=== PATIENT | female | born 2000 | race Caucasian/White ===

== ENCOUNTER 2022-06-07 17:43 | Emergency (ER) | payer OTHER, SELFPAY ==
[2022-06-07 17:50] VITALS: BP 122/63; PULSE 109; RESP 15; TEMP 36.7; O2SAT 99; BMI 20.7
[2022-06-07 18:38] LABS: Influenza A - CEPHEID Flu A NEGATIVE (NEGATIVE); Influenza B - CEPHEID Flu B NEGATIVE (NEGATIVE); Respiratory Syncytial Virus POSITIVE (Negative)
[2022-06-07 18:50] LABS: COVID-19 CEPHEID 4-PLEX PCR Negative (Negative)
--- NOTE | 2022-06-07 20:31 | ED_ITS ---
HPI - URI/Sore Throat General Chief Complaint: Upper Respiratory Symptoms Stated Complaint: sick since sunday Time Seen by Provider: 06/07/22 18:11 Source: patient Mode of arrival: Ambulatory History of Present Illness HPI Narrative: 21F nonsmoker without chronic medical history presents with her significant other and the chief complaint of various typical upper respiratory symptoms over the past few days. She is had runny nose and nasal congestion, mild headache and some sore throat as well as a dry hacking cough. She states her cough seems to get worse at night. She denies any significant shortness of breath, chest pain. She does have nausea and occasional vomiting but denies abdominal pain or diarrhea. She has no dysuria, frequency or urgency. She states that she has a friend who is 1-year-old child was recently diagnosed with RSV Related Data Previous Rx's Medication Instructions Recorded albuterol sulfate 90 mcg/actuation 2 puff inhalation Q4H PRN 06/07/22 breath activated powder inhaler shortness of breath or wheezing #1 ea benzonatate 200 mg capsule 200 mg PO BID PRN cough #20 caps 06/07/22 ondansetron 4 mg disintegrating 4 mg PO TID-QID PRN nausea and 06/07/22 tablet vomiting #10 tabs Allergies Allergy/AdvReac Type Severity Reaction Status Date / Time No Known Drug Allergies Allergy Verified 06/07/22 17:50 Review of Systems Review of Systems Narrative: GENERAL: See HPI HEENT: See HPI RESPIRATORY: See HPI CARDIOVASCULAR: Denies chest pain, palpitations, orthopnea, edema, GASTROINTESTINAL: See HPI : Denies dysuria, frequency, incontinence, hematuria, urinary retention. MUSCULOSKELETAL: denies weakness, joint pain, or bony pain SKIN: Denies rash, skin lesions, or other NEUROLOGIC: Denies weakness, headache, numbness, change in speech, confusion, seizures, incoordination. PSYCHIATRIC: No concerning psychosocial issues. 12 point review of systems is negative except for those stated above Patient History Social History Smoking Status: Unknown if ever smoked Smoking Status: Unknown if ever smoked alcohol intake frequency: a few times a week Substance Use Type: does not use Exam Narrative Exam Narrative: GENERAL: [21] year old patient appears stated age. Well-developed patient, in mild distress. HEAD: Atraumatic. Normocephalic. EYES: Pupils equal round and reactive. Extraocular motions intact. No scleral icterus. No injection or drainage. ENT: Clear postnasal drip Nose without bleeding, purulent drainage. Throat without erythema, tonsillar hypertrophy or exudate. Airway patent. NECK: Trachea midline. Non tender CARDIOVASCULAR: Regular rate and rhythm without murmurs, gallops, or rubs. RESPIRATORY: Clear to auscultation. Breath sounds equal bilaterally. No wheezes, rales, or rhonchi. No increased work of breathing such as tachypnea, use of accessory muscles or hypoxemia GASTROINTESTINAL: Abdomen soft, non-tender, nondistended. EXTREMITIES: No edema or joint tenderness. BACK: Nontender without deformity or crepitance. No flank tenderness. NEURO: AOx3. SKIN: No rash or erythema of visible areas Initial Vital Signs Initial Vital Signs: Vital Signs Temperature 98.0 F 06/07/22 17:50 Pulse Rate 109 H 06/07/22 17:50 Respiratory Rate 15 06/07/22 17:50 Blood Pressure 122/63 06/07/22 17:50 Pulse Oximetry 99 06/07/22 17:50 Oxygen Delivery Method 06/07/22 17:50 Course Orders Ordered: ED Orders 06/07/22 17:50 Covid-19 + FLU A/B + RSV - PCR Stat Discontinued Medications Ondansetron HCl (Ondansetron 4 Mg Odt Prepack) 1 bottle MISC SEEINSTR ONE Stop: 06/07/22 20:29 Vital Signs Vital signs: Vital Signs - 8 hr 06/07/22 17:50 Temperature 98.0 F Pulse Rate 109 H Respiratory Rate 15 Blood Pressure 122/63 Pulse Oximetry 99 Oxygen Delivery Method Room Air MDM - URI/Sore Throat Lab Data Labs: Lab Results 06/07/22 Range/Units 17:50 SARS-CoV-2 (PCR) Negative (Negative) Influenza A (RT-PCR) Flu a negative (NEGATIVE) Influenza B (RT-PCR) Flu b negative (NEGATIVE) RSV (PCR) Positive A (Negative) MDM Narrative Medical decision making narrative: 21-year-old nonsmoker without chronic medical problems has reassuring history and physical exam with known exposure to RSV. She is had cough but no significant shortness of breath and other various typical upper respiratory symptoms. She is not hypoxemic or requiring supplemental oxygen, she is nauseated but tolerating orals without signs of dehydration. Respiratory swab is positive for RSV. We had extensive discussion regarding return precautions and various medications that are likely to help including Tessalon Perles, [id number] antihistamines, I did add an albuterol inhaler as she states on occasion deep breath illicits dry cough. Questions answered to her apparent satisfaction. She does not need a work note Discharge Plan Departure Patient Disposition: Home Clinical Impression: Respiratory syncytial virus (RSV) Instructions: DI for Respiratory Syncytial Virus -- Adults Activity Restrictions/Additional Instructions: *You have been diagnosed with [various symptoms due to viral upper respiratory infection (RSV) *What to do: *Please consider the use of [id number] antihistamines such as cetirizine syrup which can dry the secretions that are causing many of these symptoms. As we discussed, a tsp of honey is a great option to help with cough if needed. *[x] Prescriptions sent to [facility] in [place] Fever: *Fever is temperature over 101F, it is a common feature of most viral and bacterial infections *Fever tends to come back once the Tylenol (acetaminophen) or Motrin (ibuprofen) wears off as these medications do not treat the underlying cause, just the fever itself *Treat the patient, not the number. If your child is running around and playing you don?t have to treat the fever, however, if they seem grumpy or uncomfortable it is reasonable to treat fever *Consider alternating between Tylenol and Motrin so you will be giving medications prior to the previous dose wearing off: Tylenol 15mg/kg = Motrin 10mg/kg= * your history and physical exam are very reassuring and there is no indication that the symptoms are due to a bacterial infection, therefore there is no indication for antibiotics. *Please follow up with your primary care provider in 2-3 days, call for an appointment. Let them know you were seen in the Emergency Department and that we ask that you be seen in follow up. We will electronically transmit a record of today's note if your PCP is in our system *If you do not have a primary care provider please contact the [facility] Resource line at [phone]. They will ask some questions about your medical history and help get you set up with a doctor in the community. *Return to Emergency Department if you should have any new, worsening or concerning symptoms increased work of breathing with flaring of nostrils, using belly to breathe, persistent vomiting, or other bothersome symptoms Prescriptions: New benzonatate 200 mg capsule 200 mg PO BID PRN (Reason: cough) Qty: 20 0RF ondansetron 4 mg tablet,disintegrating 4 mg PO TID-QID PRN (Reason: nausea and vomiting) Qty: 10 0RF albuterol sulfate 90 mcg/actuation aerosol powdr breath activated 2 puff INHALATION Q4H PRN (Reason: shortness of breath or wheezing) Qty: 1 0RF Rx Instructions: administer with spacer
[2022-06-07] MEDS: ONDANSETRON 4 MG ODT PREPACK 1 BOTTLE MISC (20:34)
[2022-06-07 20:36] VITALS: BP 130/72; PULSE 101; RESP 18; O2SAT 99
== END 2022-06-07 20:36 | disposition home or self-care (01) ==
PROVIDERS: Emergency Medicine; Emergency Provider Emergency Medicine
DX: J06.9 Acute upper respiratory infection, unspecified (principal); B97.4 Respiratory syncytial virus as the cause of diseases classified elsewhere; Z20.822 Contact with and (suspected) exposure to COVID-19
CPT/HCPCS: 0241U; 99281; 99282

== ENCOUNTER 2022-09-30 18:58 | Emergency (ER) | payer OTHER, SELFPAY ==
[2022-09-30 19:10] VITALS: BP 111/58; PULSE 84; RESP 12; TEMP 37; O2SAT 99; BMI 22.9
--- NOTE | 2022-09-30 21:44 | ED.BACK ---
HPI - Back Pain/Injury General Chief Complaint: Back Pain/Injury Stated Complaint: lower back pain, 15 weeks Time Seen by Provider: 09/30/22 21:44 Source: patient History of Present Illness HPI Narrative: 22-year-old at 15 weeks' has established care has no other significant medical problems comes in complaining of right back pain. No recent trauma or falls. No flankPain yet no vaginal discharge, no uterine cramping no dysuria. No recent fevers Related Data Home Medications Medication Instructions Recorded Confirmed prenat.vits,patricia,[id number] 1 tab PO DAILY 08/03/22 09/13/22 Previous Rx's Medication Instructions Recorded ondansetron 4 mg disintegrating 4 mg PO Q6H PRN nausea and 08/15/22 tablet vomiting #20 tabs Allergies Allergy/AdvReac Type Severity Reaction Status Date / Time No Known Drug Allergies Allergy Verified 09/30/22 19:14 Patient History Medical History Acne Adopted History of RSV infection (~05/2022) Surgical History [place] teeth extracted (~2019) Social History marital status: number of children: 0 household members: spouse lives independently: Yes caregiver/support person: No housing: house pets and animals: Yes (1 dog, 2 cats) education level: college (associate's degree) occupational status: employed 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, 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) special myra needs: No travel history: recent (domestic only) seatbelt use: always helmet use: Yes water heater temp set < 120 deg: Yes working smoke detector in home: Yes fire extinguisher in home: Yes carbon monox detector in home: Yes firearms in home: No do you feel safe at home: Yes Smoking Status: Former smoker Tobacco: How many years used: 4 second hand exposure: No alcohol intake: former (1-2/day when not ) substance use type: does not use during the past year weight has: remained stable well-balanced diet: rarely or never daily servings fruits/ve-1 caffeine: Yes (aware of 200mg limit) Type(s) of exercise: walking and other (very physical job) Smoking Status: Former smoker alcohol intake frequency: a few times a week Substance Use Type: does not use Exam Initial Vital Signs Initial Vital Signs: Vital Signs Temperature 98.6 F 09/30/22 19:10 Pulse Rate 84 09/30/22 19:10 Respiratory Rate 12 09/30/22 19:10 Blood Pressure 111/58 L 09/30/22 19:10 Pulse Oximetry 99 09/30/22 19:10 Oxygen Delivery Method Room Air 09/30/22 19:10 General: Alert appropriate in no acute distress Respiratory: Able to speak in full sentences, no obvious respiratory distress Skin: No obvious rashes, warm and dry Abdomen: Nontender. No flank pain. Bedside ultrasound shows a intrauterine fetus with heart rate at 160 and moderate amount of movement appreciated Neurologic: Grossly intact no obvious asymmetries or abnormalities Psych: appropriate insight and affect, cooperative pelvis: Tenderness at the right SI joint with manipulation. Pelvic ring is moderately mobile. There is no skin changes. She has no significant muscle spasm. There is no tenderness midline along her lumbar or thoracic spine. Course Vital Signs Vital signs: Vital Signs - 8 hr 09/30/22 19:10 Temperature 98.6 F Pulse Rate 84 Respiratory Rate 12 Blood Pressure 111/58 L Pulse Oximetry 99 Oxygen Delivery Method Room Air MDM - Back Pain/Injury Lab Data Labs: Urine Dip Bedside Urine Glucose Negative Bedside Urine Bilirubin - Negative Bedside Urine Ketone - Negative Urine Specific Stanton 1.030 Bedside Urine Occult Blood - Negative Bedside Urine pH 6.0 Bedside Urine Protein - Negative Bedside Urine Urobilinogen - Negative Bedside Urine Nitrite - Negative Bedside Urine Leukocytes - Negative Esterase MDM Narrative Medical decision making narrative: CC:Right-sided back pain: This is acute with uncertain prognosis Complicating co-morbidities: 15 weeks Data collected from: patient, Differential considered: related discomfort, pyelonephritis, compression fracture, abruption, cervical dilation/miscarriage Exam documented above, pertinent findings include: tenderness with pelvic ring manipulation Lab Test results independently reviewed as above. Pertinent findings: Urine dip is unremarkable Imaging studies independently reviewed: bedside ultrasound confirms viable intrauterine , heart rate 160 Discussion: 22-year-old with pelvic ring instability increasing at 15 weeks consistent with common discomforts of . Discussed finding a pelvic binder suggested looking at online stores and discussed use in helping with pelvic stability. Also recommended Tylenol as needed. She will follow-up with her primary care doctor. Disposition: see below, along with detailed discharge instructions that have been reviewed with patient as well as indications for ED re-evaluation and additional outpatient follow up Discharge Plan Departure Patient Disposition: Home Clinical Impression: Discomfort during Instructions: DI for Low Back Pain Activity Restrictions/Additional Instructions: thank you for coming in today I suspect that you are experiencing the ligaments loosening slightly in your pelvic ring secondary to your . You do not have a bladder infection, the baby's heartbeat is very appropriate at 160. Look for a pelvic binder or belly binder at any of the common online sites or maternity sections in stores. These are basically wide Velcro bands that you can wrap around yourr lower pelvis to help provide more stability and decrease pain. In the meantime you can also use Tylenol if it is uncomfortable enough that you want to take medication. If you find that you are getting worse or develop any new symptoms, please feel free to return to the emergency department for further evaluation. Prescriptions: No Action prenat.vits,patricia,[id number] Tablet 1 tab PO DAILY ondansetron 4 mg tablet,disintegrating 4 mg PO Q6H PRN (Reason: nausea and vomiting) Qty: 20 3RF Referrals: ProviderAlda [Primary Care Provider] - Stand Alone Forms: Patient Portal/API
[2022-09-30 22:19] VITALS: BP 106/58; PULSE 67; RESP 16; O2SAT 98
== END 2022-09-30 22:38 | disposition home or self-care (01) ==
PROVIDERS: Emergency Provider Emergency Medicine
DX: O26.92 Pregnancy related conditions, unspecified, second trimester (principal); M54.50 Low back pain, unspecified; Z3A.15 15 weeks gestation of pregnancy
CPT/HCPCS: 81003; 99281; 99282

== ENCOUNTER → 2022-10-10 14:56 | Outpatient (CLI) | payer OTHER, SELFPAY ==
[2022-10-10 19:01] LABS: Urine N gonorrhoeae NOT DETECTED
[2022-10-10 19:12] LABS: Urine Chlamydia DETECTED
== END ==
PROVIDERS: Visit Provider Obstetrics & Gynecology
DX: Z34.02 Encounter for supervision of normal first pregnancy, second trimester (principal); Z3A.16 16 weeks gestation of pregnancy
CPT/HCPCS: 87077; 87086; 87186; 87491; 87591

== ENCOUNTER → 2022-10-13 14:38 | Outpatient (CLI) | payer OTHER, SELFPAY ==
[2022-10-13 15:23] LABS: Add Manual Diff / Slide Review NO; Basophils Absolute Auto 0 /uL (0-100); Basophils Percent Auto 0.3 % (0-2); Eosinophils Absolute Auto 300 /uL (0-450); Eosinophils Percent Auto 3.7 % (2-4); Hematocrit 36.8 % (36-46); Hemoglobin 12.8 g/dL (12.0-16.0); Lymphocytes Absolute Auto 1400 /uL (1100-4500); Lymphocytes Percent Auto 17.5 % (25-40); Mean Corpuscular HGB Conc 34.8 % (30-36); Mean Corpuscular Hemoglobin 32.3 PG (26-34); Mean Corpuscular Volume 92.8 fL (80-100); Monocytes Absolute Auto 500 /uL (0-900); Monocytes Percent Auto 5.8 % (3-14); Neutrophils Absolute Auto 5900 /uL (1500-7000); Neutrophils Percent Auto 72.7 % (50-75); Platelet Count 242 X10^3/uL (150-400); Red Blood Cell Count 3.97 X10^6/uL (4.0-5.2); Red Cell Distribution Width 13.2 % (11.6-14.8)
[2022-10-13 18:01] LABS: Hepatitis B Surface Antigen NEGATIVE s/c (NEGATIVE)
[2022-10-13 18:22] LABS: HIV 1 & 2 Ab/Ag 4th Gen Combo NEGATIVE (NEGATIVE); Hep C Virus Ab w/Reflex Quant NEGATIVE s/c (NEGATIVE)
[2022-10-15 12:23] LABS: Varicella IgG Antibody 595 index (Immune >165)
[2022-10-17 03:11] LABS: RPR Screen Non Reactive (Non Reactive)
[2022-10-18 21:03] LABS: AFP, Serum 45.9 ng/mL (.); Estriol, Free 0.66 ng/mL (.); Inhibin A, Dimeric 129.83 pg/mL (.); Inhibin A, MoM 0.88 (.); Maternal Ethnicity Caucasian (.); Maternal Weight 158 lbs (.); Number of Fetuses No (.); OSBR Risk 1 IN 6301 (.); Test Results *Screen Negative* (.); hCG, MoM 0.95 (.); hCG, Serum 31846 mIU/mL (.)
[2022-10-19 09:02] LABS: Results Report (.)
== END ==
PROVIDERS: Referring Provider Obstetrics & Gynecology; Visit Provider Obstetrics & Gynecology
DX: Z34.02 Encounter for supervision of normal first pregnancy, second trimester (principal); Z3A.16 16 weeks gestation of pregnancy
CPT/HCPCS: 36415; 80055; 82105; 82677; 84702; 86336; 86787; 86803; 86850; 86900; 86901; 87389

== ENCOUNTER → 2022-11-06 10:20 | Outpatient (CLI) | payer OTHER, SELFPAY ==
--- NOTE | 2022-11-06 10:23 | DI.US.S_ITS ---
PROCEDURE: US OB >= 14 WEEKS FETUS INDICATIONS: ANATOMY OUTSIDE/PRIOR DATING DATA: Last menstrual period (LMP): 06/16/2022. LMP-based estimated date of delivery (KIERAN): 03/23/2023. First dating scan (date and location): 08/15/2022. Estimated date of delivery (KIERAN) from first dating scan: 03/27/2023. The calculations are made using the clinical KIERAN of 03/23/2023. TECHNIQUE: Real-time scanning was performed of the fetus, with image documentation and biometric measurements. Endovaginal scanning: Not performed COMPARISON: [facility], , OB >= 14 WEEKS FETUS, 10/10/2022, 15:21. FINDINGS: General: A single living intrauterine gestation is present. Presentation: Vertex. Placenta: Placental position is anterior , without previa. Amniotic fluid index: 9.3 cm, normal range is 5-24 cm. Single deepest vertical pocket is 2.4 cm. heart rate: 139 beats per minute. Maternal cervical canal: 3.5 cm long. Normal lower limit is 2.5 cm. biometrics: Biparietal diameter: 4.5 cm 19 weeks 5 days Head circumference: 17.1 cm 19 weeks 5 days Abdominal circumference: 16.1 cm 21 weeks 1 day Femur length: 3.2 cm 20 weeks 0 days estimated gestational age: 20 weeks 3 days Composite gestational age from present scan: 20 weeks 1 day Estimated weight and percentile: 360 g, 51st percentile Anatomic survey: Neuro: Ventricles are non-dilated at less than 10 mm. Cisterna magna is normal at 3-11 mm. Cerebellum is normal in size and morphology. Nuchal skin fold: Normal at less than 6 mm between 14-21 weeks gestational age. Face: Not well visualized. Spine: No evidence for spina bifida. Heart: 4-chambered heart is present, with normal ventricular outflow tracts. Diaphragm: Diaphragm is intact. Stomach: Left-sided stomach is present. Kidneys: No hydronephrosis. Normal is less than 5 mm in 2nd trimester, less than 7 mm in 3rd trimester. Cord: 3-vessel cord has orthotopic insertion. Bladder: Normal in size. Extremities: Both upper extremities and the right lower extremity were identified. The left foot was not well visualized. IMPRESSION: 1. Single living intrauterine . 2. Estimated weight at the 51st percentile. 3. face, nose/lips, profile and left foot were not well visualized due to lie. Attention on follow-up is recommended. 4. Otherwise, visualized anatomy is within normal limits. We strive to produce accurate, complete, and clear reports of imaging services. To assist us in improving patient care, this report was composed using standard report templates and voice recognition software. Therefore, it may contain abnormal punctuation, insertions and/or omissions. Occasional wrong-word or sound-alike substitutions may occur. Though we review the report and make efforts to correct it, we do recommend that the report be read carefully in proper context to recognize any text inaccuracies. Dictated by: Javier Ott M.D. on 11/06/2022 at 17:17 Approved by: Javier Ott M.D. on 11/06/2022 at 17:28
== END ==
PROVIDERS: Referring Provider Obstetrics & Gynecology; Visit Provider Obstetrics & Gynecology
DX: Z36.89 Encounter for other specified antenatal screening (principal); Z3A.20 20 weeks gestation of pregnancy; Z11.3 Encounter for screening for infections with a predominantly sexual mode of transmission
CPT/HCPCS: 76811; 87491; 87591

== ENCOUNTER → 2022-11-06 14:24 | Outpatient (CLI) | payer OTHER, SELFPAY ==
[2022-11-06 19:57] LABS: Urine N gonorrhoeae NOT DETECTED
[2022-11-06 19:59] LABS: Urine Chlamydia NOT DETECTED
== END ==
PROVIDERS: Visit Provider Obstetrics & Gynecology
DX: Z11.3 Encounter for screening for infections with a predominantly sexual mode of transmission (principal)
CPT/HCPCS: 87491; 87591

== ENCOUNTER → 2022-12-15 14:26 | Outpatient (CLI) | payer OTHER, SELFPAY ==
[2022-12-15 16:11] LABS: Hematocrit 35.6 % (36-46); Hemoglobin 12.1 g/dL (12.0-16.0)
[2022-12-15 16:22] LABS: GTT (PREG) 1 Hour PP 50gm Dose 103 mg/dL (76-139)
== END ==
PROVIDERS: Referring Provider Obstetrics & Gynecology; Visit Provider Obstetrics & Gynecology
DX: Z34.02 Encounter for supervision of normal first pregnancy, second trimester (principal); Z3A.26 26 weeks gestation of pregnancy
CPT/HCPCS: 36415; 82950; 85014; 85018

== ENCOUNTER 2023-01-13 15:09 | Inpatient (IN) | payer OTHER, SELFPAY ==
[2023-01-13 15:37] LABS: Appearance Urine UA CLEAR; Bilirubin Urine UA NEGATIVE (NEGATIVE); Color Urine UA YELLOW; Glucose Urine UA NEGATIVE (Negative); Ketones Urine UA NEGATIVE (NEGATIVE); Leukocyte Esterase Urine UA 1+ (NEGATIVE); Nitrite Urine UA NEGATIVE (Negative); Occult Blood Urine UA NEGATIVE (Negative); Protein Urine UA NEGATIVE (Negative); Specific Gravity Urine UA <=1.005 (1.000-1.035); Urobilinogen Urine UA 0.2 E.U./dL (0.2)
[2023-01-13] MEDS: NIFEdipine 10 MG CAPSULE PO ×4 (15:46→17:27)
[2023-01-13 16:06] LABS: Bacteria Urine Many (>30); Culture Indicated Urine Specimen Cultured; RBC Urine 0-1/HPF (0-5/HPF); Squamous Epithelial Cell Urine 5-10 /HPF (0-5/HPF); WBC Urine 5-10/HPF (0-5/HPF)
[2023-01-13] MEDS: LACTATED RINGERS 1,000 ML 120 ML IV (16:42)
[2023-01-13] MEDS: cefTRIAXone 2,000 MG in SODIUM CHLORIDE 0.9% 100 ML 200 MG IV (17:03)
[2023-01-13 18:01] VITALS: TEMP 37.4
[2023-01-13] MEDS: fentaNYL 100 MCG/2 ML INJ 50 MCG IV (18:01)
--- NOTE | 2023-01-13 19:17 | PM.OBHP.1 ---
OB HPI Date/Time Date of admission: 01/13/23 Date Patient Seen: 01/13/23 Time Patient Seen: 19:00 History of Present Condition Chief complaint: IUP, 30+1 wks EGA, R pyelonephritis : 1 Para: 0 Estimated Date of Delivery: 03/23/23 Estimated Gestational Age (weeks): 30+1 Narrative: Latonya Conte is a 22 year old primigravida at 30+ 1 weeks who began developing severe right flank pain earlier today. Pain is constant, non-radiating with severe exacerbations to 10/10. Last night she experienced chills and sweats but denies fevers. Patient has a history of frequent UTIs and has been having some mild bladder symptoms over the last couple of days prior to development of her right flank pain earlier today. In addition she has mild nausea but no vomiting. She denies contractions, bleeding, leakage fluid per vagina, or change in discharge and her baby is active. History of Present care: good care Dating criteria: LMP confirmed by 1st trimester US Ultrasounds: normal 1st trimester US and normal mid trimester US Obstetrical complications: none Preadmission Labs Blood type: A (+) positive -: Antibody screen: negative, GBS status: unknown, HBsAG: negative, HIV: negative and RPR/VDLR: negative -: Chlamydia screen: not detected and Gonorrhea screen: not detected -: Rubella: immune and Varicella: immune HCT: 35.6 HCAB: negative Quad screen: Normal Cell-free DNA: Declined 1 hr GTT: 103 Prior (ies) History: Primigravida Evaluation Evaluation Baseline heart rate: 135 Variability: Moderate (11-25) monitor accelerations: Present Monitor Decelerations: Absent Contraction Frequency (minutes): 4 Uterine Contraction Intensity: Mild Category of Tracing: Appropriate for gestational age [facility] Medical History Acne Adopted History of RSV infection (~05/2022) Surgical History [place] teeth extracted (~2019) Social History marital status: number of children: 0 household members: spouse lives independently: Yes caregiver/support person: No housing: house pets and animals: Yes (1 dog, 2 cats) education level: college (associate's degree) occupational status: employed 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, 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) special myra needs: No travel history: recent (domestic only) seatbelt use: always helmet use: Yes water heater temp set < 120 deg: Yes working smoke detector in home: Yes fire extinguisher in home: Yes carbon monox detector in home: Yes firearms in home: No do you feel safe at home: Yes Smoking Status: Former smoker Tobacco: How many years used: 4 second hand exposure: No alcohol intake: former (1-2/day when not ) substance use type: does not use during the past year weight has: remained stable well-balanced diet: rarely or never daily servings fruits/ve-1 caffeine: Yes (aware of 200mg limit) Type(s) of exercise: walking and other (very physical job) Meds Home Medications and Allergies Home Medications Medication Instructions Recorded Confirmed Type ondansetron 4 mg disintegrating 4 mg PO Q6H PRN nausea and 08/15/22 01/10/23 Rx tablet vomiting #20 tabs azithromycin 1 gram oral packet 1 g PO ONCE #1 tab 10/12/22 01/10/23 Rx prenat.vits,patricia,[id number] 1 tab PO DAILY #90 tabs 11/06/22 01/10/23 Rx Allergies Allergy/AdvReac Type Severity Reaction Status Date / Time No Known Drug Allergies Allergy Verified 01/10/23 15:23 OB Exam Vital signs Blood Pressure: 109/65 Pulse Rate: 93 Temperature: 99.3 F Narrative Exam Narrative: WDWN WF in distress due to flank pain HENMT Head: normal to inspection, normocephalic and atraumatic Eyes General: appearance normal, both eyes and all related structures Resp Effort & Inspection: normal respiratory effort and able to speak in complete sentences Auscultation: clear to auscultation bilaterally Cardio Rate: regular rate Rhythm: regular rhythm Heart Sounds: S1 normal, S2 normal and no murmurs Extremities Lower extremity: Yes normal to inspection GI Inspection: normal to inspection Palpation: Yes soft, Yes no hepatosplenomegaly and Yes other (+ right sided CVAT) Uterus Location (Fundal Height): 30 Objective Labs Labs: Laboratory Results - last 24 hr 01/13/23 15:10 Urine Color Yellow Urine Appearance Clear Urine pH 7.0 Ur Specific [place] <=1.005 Urine Protein Negative Urine Glucose (UA) Negative Urine Ketones Negative Urine Occult Blood Negative Urine Nitrate Negative Urine Bilirubin Negative Urine Urobilinogen 0.2 Ur Leukocyte Esterase 1+ H Urine RBC 0-1/hpf Urine WBC 5-10/hpf H Ur Squamous Epith Cells 5-10 /hpf H Urine Bacteria Many (>30) H Ur Culture Indicated? Specimen cultured Assessment and Plan Assessment and Plan Assessment and Plan narrative: ASSESSMENT Intrauterine gestation, 30+ 1 weeks gestational age Acute pyelonephritis, right PLAN Admit for IV antibiotics and pain management - Empiric antibiotic therapy with ceftriaxone - PRN fentanyl Renal ultrasound to rule out obstruction and/or abscess formation See admission orders
[2023-01-13 19:28] VITALS: BP 109/65; PULSE 93; TEMP 37.4
[2023-01-13 20:00] VITALS: BP 109/65
[2023-01-13] MEDS: ACETAMINOPHEN 325 MG TABLET 650 MG PO (23:29)
[2023-01-14] MEDS: ACETAMINOPHEN 325 MG TABLET 650 MG PO (06:32)
[2023-01-14 06:36] LABS: Add Manual Diff / Slide Review NO; Basophils Absolute Auto 0 /uL (0-100); Basophils Percent Auto 0.6 % (0-2); Eosinophils Absolute Auto 300 /uL (0-450); Eosinophils Percent Auto 4.3 % (2-4); Hematocrit 32.9 % (36-46); Hemoglobin 11.4 g/dL (12.0-16.0); Lymphocytes Absolute Auto 1400 /uL (1100-4500); Lymphocytes Percent Auto 19.4 % (25-40); Mean Corpuscular HGB Conc 34.7 % (30-36); Mean Corpuscular Hemoglobin 32.8 PG (26-34); Mean Corpuscular Volume 94.4 fL (80-100); Monocytes Absolute Auto 500 /uL (0-900); Monocytes Percent Auto 7.1 % (3-14); Neutrophils Absolute Auto 4800 /uL (1500-7000); Neutrophils Percent Auto 68.6 % (50-75); Platelet Count 183 X10^3/uL (150-400); Red Blood Cell Count 3.49 X10^6/uL (4.0-5.2); Red Cell Distribution Width 12.7 % (11.6-14.8)
[2023-01-14 06:55] LABS: Alanine Aminotransferase 22 IU/L (<35); Albumin 3.3 g/dL (3.5-5.0); Albumin Globulin Ratio 1.2 (1.0-2.8); Alkaline Phosphatase 72 U/L (38-126); Aspartate Aminotransferase 23 IU/L (14-36); BUN Creatinine Ratio 12.2 (6-22); Bilirubin Total 0.3 mg/dL (0.2-1.3); Blood Urea Nitrogen 6 mg/dL (7-17); Calcium 8.5 mg/dL (8.4-10.2); Carbon Dioxide 25 mmol/L (22-32); Chloride 105 mmol/L (98-107); Estimated Glomerular Filt Rate > 60 mL/min (>60); Globulin 2.8 g/dL (1.7-4.1); Glucose 81 mg/dL (70-100); HEMOLYSIS < 15 (0-50); Potassium 4.2 mmol/L (3.4-5.1); Sodium 134 mmol/L (137-145); Total Protein 6.1 g/dL (6.3-8.2)
--- NOTE | 2023-01-14 07:30 | DI.US.S_ITS ---
PROCEDURE: US RENAL COMPLETE INDICATIONS: ACUTE PYELONEPHRITIS. RULE OUT OBSTRUCTION/ABSCESS. TECHNIQUE: Real-time scanning was performed of the kidneys and bladder, with image documentation. COMPARISON: [facility], US, US OB >= 14 WEEKS FETUS, 01/10/2023, 15:42. FINDINGS: Kidneys: Right kidney measures 11.6 cm in length. There is mild-moderate right hydronephrosis. No evidence for nephrolithiasis. No suspicious mass lesion. Mildly hyperemic appearance of the right renal parenchyma. Left kidney measures 10.4 cm in length. No hydronephrosis. No evidence for renal stones on the left. Suggestion of mildly hyperemic left renal parenchyma. No focal mass lesions. Bladder: Pre-void bladder volume is 79 mL. Post-void residual is 0 mL. Pre-void images demonstrate no intraluminal masses or stones. On pre-void images, left ureteral jet is noted with color Doppler interrogation. The right ureteral jet was not seen. No definite ureteral lesion or stone identified although study is limited secondary to moderate overlying bowel gas. (Of note, ureteral jets may not be detectable in up to 25% of cases due to insufficient differences in specific gravity between ureteral and bladder urine). Miscellaneous: No free pelvic fluid. IMPRESSION: 1. Mild-moderate right hydronephrosis without evidence for nephrolithiasis, mass lesion, or definite ureteral obstruction or ureteral stone. However, study slightly limited due to moderate overlying bowel gas. 2. Suggestion of mildly hyperemic renal parenchyma the bilateral kidneys which may be related to reported history of pyelonephritis. 3. Single living intrauterine gestation with heart rate measuring 163 beats per minute. Dictated by: Angelo Lucia M.D. on 01/14/2023 at 9:24 Approved by: Angelo Lucia M.D. on 01/14/2023 at 9:28
[2023-01-14] MEDS: cefTRIAXone 1,000 MG in SODIUM CHLORIDE 0.9% 100 ML 200 MG IV (13:24)
--- NOTE | 2023-01-14 13:41 | P.DS_ITS ---
Discharge Providers Provider Date of admission: 01/13/23 15:09 Discharge Date: 01/14/23 Primary care physician: Alda HESS Provider Discharge provider: Thiago Levin MD Summary Hospital Course Date Patient Seen: 01/14/23 Time Patient Seen: 13:41 Diagnoses: Intrauterine gestation, 30+ 1 weeks gestational age Acute pyelonephritis, right Hospital Course: On the afternoon of 01/13/2023, Latonya was admitted with severe right flank pain requiring fentanyl for relief and pyuria/bacteriuria. Patient was initiated on intravenous ceftriaxone 2 g IV followed by 1 g on the afternoon of 01/14/2023. Patient's flank pain has markedly defervesced and ultrasound shows no evidence of obstruction or abscess formation. Urine culture at the time of discharge shows no growth clinically the symptoms the patient was experiencing have markedly improved and she feels significantly better subjectively. She will be discharged at this time to home after counseling regarding precautionary symptoms, limitations activity, medications, and follow-up which will be with Dr. Alonso on 02/01/2023. Medications at discharge will include resumption of all pre-admission medications and cephalexin 750 mg p.o. b.i.d. times 10 days. Patient will be contacted with final results of the urine culture when available. Status at Discharge Cognitive/behavioral status at discharge: oriented Functional status at discharge: independent ambulation Overall status at discharge: patient is back to baseline Time Spent with Patient Time attestation: Total time spent providing and/or coordinating discharge services: Time spent: Less than 30 minutes Objective Labs 01/14/23 06:20 01/14/23 06:20 Labs: Laboratory Results - last 24 hr 01/13/23 01/14/23 01/14/23 15:10 06:20 06:20 WBC 7.0 RBC 3.49 L Hgb 11.4 L Hct 32.9 L MCV 94.4 MCH 32.8 MCHC 34.7 RDW 12.7 Plt Count 183 Neut % (Auto) 68.6 Lymph % (Auto) 19.4 L [place] % (Auto) 7.1 Eos % (Auto) 4.3 H Baso % (Auto) 0.6 Neut # (Auto) 4800 Lymph # (Auto) 1400 [place] # (Auto) 500 Eos # (Auto) 300 Baso # (Auto) 0 Sodium 134 L Potassium 4.2 Chloride 105 Carbon Dioxide 25 BUN 6 L Creatinine 0.49 L Estimated GFR > 60 BUN/Creatinine Ratio 12.2 Glucose 81 Calcium 8.5 Total Bilirubin 0.3 AST 23 ALT 22 Alkaline Phosphatase 72 Total Protein 6.1 L Albumin 3.3 L Globulin 2.8 Albumin/Globulin Ratio 1.2 Urine Color Yellow Urine Appearance Clear Urine pH 7.0 Ur Specific [place] <=1.005 Urine Protein Negative Urine Glucose (UA) Negative Urine Ketones Negative Urine Occult Blood Negative Urine Nitrate Negative Urine Bilirubin Negative Urine Urobilinogen 0.2 Ur Leukocyte Esterase 1+ H Urine RBC 0-1/hpf Urine WBC 5-10/hpf H Ur Squamous Epith Cells 5-10 /hpf H Urine Bacteria Many (>30) H Ur Culture Indicated? Specimen cultured Exam Const General: cooperative and comfortable Nutritional Appearance: average body habitus Orientation: alert and oriented x3 HENMT Head: normal to inspection, atraumatic and abrasion Ears: hearing grossly normal bilaterally Face and sinus: face symmetric Eyes General: appearance normal, both eyes and all related structures Conjunctivae: conjunctivae normal Sclera: sclerae normal EOM: EOM intact bilaterally Neck Neck: normal visual inspection Resp Effort & Inspection: normal respiratory effort and able to speak in complete sentences Auscultation: clear to auscultation bilaterally Cardio Rate: regular rate Rhythm: regular rhythm Heart Sounds: S1 normal, S2 normal and no murmurs GI Inspection: normal to inspection Palpation: soft, no hepatosplenomegaly and tender (Minimal right CVAT) Extrem General: no calf tenderness Psych Appearance: grossly normal Mental Status: mental status grossly normal Speech and Movement: speech and movement normal Mood: congruent mood Affect: normal affect Attitude: cooperative Thought Process: normal Thought Content: normal Judgment: judgment good Discharge Plan Discharge Plan Patient Disposition: Home Provider Discharge Comment: Please review the written instructions you received when you were discharged from hospital. Your follow-up with Dr. Alonso is scheduled for 02/01/2023. If however in the meanwhile you have any questions, concerns, or problems, please contact the office at [phone] or via the patient portal. Discharge orders & Medications Prescriptions: New cephalexin 750 mg capsule 750 mg PO BID Qty: 20 0RF Continued ondansetron 4 mg tablet,disintegrating 4 mg PO Q6H PRN (Reason: nausea and vomiting) Qty: 20 3RF prenat.vits,patricia,[id number] Tablet 1 tab PO DAILY Qty: 90 0RF Discontinued azithromycin 1 gram packet 1 g PO ONCE Qty: 1 0RF Follow up/Referrals: ProviderAlda [Primary Care Provider] - Discharge Health Status Multidrug resistant organism: No MDRO Diet/Activity/Treatments Diet: Diet as Tolerated Activity: As tolerated Other treatments: [id number] Tylenol may be used for pain relief Skin/Wound/Dressing Care Report to your healthcare provider any signs of infection, such as:: chills, fever, increased pain, unusual drainage and unusual redness Dressing: N/A Visit Report/Discharge Packet Instructions: DI for Kidney Infection Discharge Data Primary Care Provider: Alda Frank Attending Provider: Christina Alonso Admit Date/Time: 01/13/23 15:09
[2023-01-14 13:53] VITALS: BP 104/67; PULSE 77; RESP 17; TEMP 37.1
== END 2023-01-14 14:47 | disposition home or self-care (01) | DRG 832 ==
PROVIDERS: Obstetrics & Gynecology; Admitting Provider Obstetrics & Gynecology; Referring Provider Obstetrics & Gynecology; Visit Provider Obstetrics & Gynecology
DX: O23.03 Infections of kidney in pregnancy, third trimester (principal); N10 Acute pyelonephritis; Z3A.30 30 weeks gestation of pregnancy
CPT/HCPCS: 36415; 36592; 59025; 59050; 76770; 80053; 81001; 85025; 87086; 96360; 99222; 99238; G0378; G0379; J0696; J3010

== ENCOUNTER → 2023-03-02 09:21 | Outpatient (CLI) | payer OTHER, SELFPAY ==
[2023-03-03 08:13] LABS: Strep Grp B PCR NEG for Grp B Strep
== END ==
PROVIDERS: Visit Provider Obstetrics & Gynecology
DX: Z34.03 Encounter for supervision of normal first pregnancy, third trimester (principal)
CPT/HCPCS: 87653

== ENCOUNTER 2023-03-26 11:04 | Outpatient (CLI) | payer OTHER, SELFPAY ==
--- NOTE | 2023-03-26 11:34 | P.TNLD_ITS ---
Visit Information Visit Information Date of evaluation: 03/26/23 Primary OB Provider: Christina Alonso On-call OB Provider: Nikole Doran Reason for Evaluation: Yes non-stress test non-stress test reason: other (Postdates) Comments/Additional reasons for admission: Patient is 40 weeks 3 days who comes in for nonstress test for postdates Vital Signs Vital Signs: Blood pressure 114/69, pulse 97, temperature 36.8? 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) special myra needs: No travel history: recent (domestic only) seatbelt use: always helmet use: Yes water heater temp set < 120 deg: Yes working smoke detector in home: Yes fire extinguisher in home: Yes carbon monox detector in home: Yes firearms in home: No do you feel safe at home: Yes Smoking Status: Never smoker Tobacco: How many years used: 4 second hand exposure: No alcohol intake: former (1-2/day when not ) substance use type: does not use during the past year weight has: remained stable well-balanced diet: rarely or never daily servings fruits/ve-1 caffeine: Yes (aware of 200mg limit) Type(s) of exercise: walking and other (very physical job) Evaluation Evaluation Baseline heart rate: 130 Variability: Moderate (11-25) monitor accelerations: Present Monitor Decelerations: Absent Contraction Frequency (minutes): 0 Category of Tracing: Reactive Status: Category l Diagnosis, Plan/Disposition Final Diagnosis (1) Post term : Status: Acute Plan/Disposition Plan: Reactive nonstress test. Patient is scheduled for induction on April 02. Labor precautions reviewed. OB Disposition: home
== END 2023-03-26 11:40 | disposition home or self-care (01) ==
LOC: LABOR 11:44 → OB 03-29 09:57
PROVIDERS: Referring Provider Specialist; Visit Provider Specialist
DX: O48.0 Post-term pregnancy (principal); Z3A.40 40 weeks gestation of pregnancy; R22.0 Localized swelling, mass and lump, head; T78.40XA Allergy, unspecified, initial encounter
CPT/HCPCS: 59025; 99283; G0378; G0379

== ENCOUNTER 2023-03-26 12:39 | Emergency (ER) | payer OTHER, SELFPAY ==
[2023-03-26 12:42] VITALS: BP 111/63; PULSE 76; RESP 16; TEMP 37; O2SAT 100; BMI 27.9
--- NOTE | 2023-03-26 13:01 | ED.ALLEREA ---
HPI - Allergic Reaction General Chief complaint: Allergic Reaction Stated complaint: thinks allergic reaction/40 wks Time Seen by Provider: 03/26/23 12:50 Source: patient Mode of arrival: Ambulatory History of Present Illness HPI narrative: Patient is a 22-year-old female. She is 40 week gestation. She was eating at a local restaurant where she stated that she had a fairly sudden onset of swelling to her lower lip. No vomiting. No fevers. No other skin rashes. She was she states that her symptoms have improved somewhat from the onset. She is not tried anything for the symptoms prior to arrival. She was eating food that did have seafood in it. She is never had a reaction to this in the past. She is not having any vaginal bleeding, abdominal cramping, loss of fluid or other related issues. Related Data Previous Rx's Medication Instructions Recorded ondansetron 4 mg disintegrating 4 mg PO Q6H PRN nausea and 08/15/22 tablet vomiting #20 tabs prenat.vits,patricia,[id number] 1 tab PO DAILY #90 tabs 11/06/22 Allergies Allergy/AdvReac Type Severity Reaction Status Date / Time No Known Drug Allergies Allergy Verified 03/26/23 10:23 Review of Systems Constitutional Constitutional: Reports system reviewed and no additional complaints, except as documented ENT Ears, Nose, Mouth, and Throat: Reports system reviewed and no additional complaints, except as documented Respiratory Respiratory: Reports system reviewed and no additional complaints, except as documented Gastrointestinal Gastrointestinal: Reports system reviewed and no additional complaints, except as documented Integumentary/Breasts Skin/Breast: Reports system reviewed and no additional complaints, except as documented Neurologic Neurologic: Reports system reviewed and no additional complaints, except as documented Hematologic/Lymphatic On Anticoagulants: No Patient History Medical History Acne Adopted History of RSV infection (~05/2022) Surgical History [place] teeth extracted (~2019) Social History marital status: number of children: 0 household members: spouse lives independently: Yes caregiver/support person: No housing: house pets and animals: Yes (1 dog, 2 cats) education level: college (associate's degree) occupational status: employed 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, 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) special myra needs: No travel history: recent (domestic only) seatbelt use: always helmet use: Yes water heater temp set < 120 deg: Yes working smoke detector in home: Yes fire extinguisher in home: Yes carbon monox detector in home: Yes firearms in home: No do you feel safe at home: Yes Smoking Status: Never smoker Tobacco: How many years used: 4 second hand exposure: No alcohol intake: former (1-2/day when not ) substance use type: does not use during the past year weight has: remained stable well-balanced diet: rarely or never daily servings fruits/ve-1 caffeine: Yes (aware of 200mg limit) Type(s) of exercise: walking and other (very physical job) Smoking Status: Never smoker alcohol intake frequency: a few times a week Substance Use Type: does not use Exam Initial Vital Signs Initial Vital Signs: Vital Signs Temperature 98.6 F 03/26/23 12:42 Pulse Rate 76 03/26/23 12:42 Respiratory Rate 16 03/26/23 12:42 Blood Pressure 111/63 03/26/23 12:42 Pulse Oximetry 100 03/26/23 12:42 Oxygen Delivery Method Room Air 03/26/23 12:42 HENMT Mouth: tongue normal, oropharynx normal, moist mucous membranes, No drooling and lip abnormal (Mild swelling lower lip) Throat: posterior oropharynx abnormal Resp Effort & Inspection: normal respiratory effort Auscultation: clear to auscultation bilaterally GI Other: Gravid abdomen Skin General: no rashes or lesions noted Extrem General: normal to inspection Course Orders Ordered: Discontinued Medications Diphenhydramine HCl (Diphenhydramine 25 Mg Tablet) 25 mg PO NOW ONE Stop: 03/26/23 13:10 Last Admin: 03/26/23 13:15 Dose: 25 mg Documented By: ST Vital Signs Vital signs: Vital Signs - 8 hr 03/26/23 12:42 Temperature 98.6 F Pulse Rate 76 Respiratory Rate 16 Blood Pressure 111/63 Pulse Oximetry 100 Oxygen Delivery Method Room Air MDM - Allergic Reaction MDM Narrative Medical decision making narrative: Patient does have swelling to her lower lip but no other indication of an allergic reaction. She is not been vomiting. No respiratory distress. She was given 1 dose of Benadryl here in the ER and her symptoms continue to improve. She is not having any OB related issues. Does not meet criteria for anaphylaxis. No indication for admission in the hospital. Will discharge patient home with return precautions. She expressed understanding and agreement. Discharge Plan Departure Patient Disposition: Home Clinical Impression: Allergic reaction Instructions: DI for General Allergic Reactions Activity Restrictions/Additional Instructions: I do recommend that you continue to keep all of your scheduled OB appointments. You can take another dose of Benadryl in 6 hours if you feel like you would benefit from this. Return to the emergency department for new or worsening symptoms. Prescriptions: No Action ondansetron 4 mg tablet,disintegrating 4 mg PO Q6H PRN (Reason: nausea and vomiting) Qty: 20 3RF prenat.vits,patricia,[id number] Tablet 1 tab PO DAILY Qty: 90 0RF Referrals: ProviderAlda [Primary Care Provider] - Stand Alone Forms: Patient Portal/API
[2023-03-26] MEDS: diphenhydrAMINE 25 MG TABLET PO (13:15)
[2023-03-26 14:21] VITALS: BP 109/57; PULSE 86; RESP 16; O2SAT 97
== END 2023-03-26 14:21 | disposition home or self-care (01) ==
PROVIDERS: Emergency Provider Emergency Medicine
DX: R22.0 Localized swelling, mass and lump, head (principal); Z3A.40 40 weeks gestation of pregnancy; T78.40XA Allergy, unspecified, initial encounter

== ENCOUNTER 2023-04-01 09:14 | Inpatient (IN) | payer OTHER, SELFPAY ==
--- NOTE | 2023-04-01 09:53 | P.HPOB_ITS ---
OB HPI Date/Time Date of admission: 04/01/23 Date Patient Seen: 04/01/23 Time Patient Seen: 09:53 History of Present Condition Chief complaint: Labor : 1 Para: 0 Estimated Date of Delivery: 03/23/23 Estimated Gestational Age (weeks): 41 Narrative: Latonya Conte is a 22 year old female admitted in active labor with spontaneous rupture membranes History of Present care: good care, initiated at week # (8), number of visits (13) and pounds weight gain (45) Dating criteria: LMP confirmed by 1st trimester US Ultrasounds: normal mid trimester US Obstetrical complications: none Medical complications: none Preadmission Labs Blood type: A (+) positive -: Antibody screen: negative, GBS status: negative, HBsAG: negative, HIV: negative and RPR/VDLR: negative -: Chlamydia screen: not detected and Gonorrhea screen: not detected -: Rubella: immune and Varicella: immune HCAB: negative Quad screen: Normal 1 hr GTT: 103 Evaluation Evaluation Baseline heart rate: 130 Variability: Moderate (11-25) monitor accelerations: Present Monitor Decelerations: Absent Contraction Frequency (minutes): 3 Uterine Contraction Intensity: Strong/Firm Category of Tracing: Reactive Status: Category l Dilation (cm): 5 Effacement (%): 80 station: -1 Position of cervix: mid Consistency: soft Non-invasive Membranes Rupture Test: positive PFSH Medical History Acne Adopted History of RSV infection (~05/2022) Surgical History [place] teeth extracted (~2019) Social History marital status: number of children: 0 household members: spouse lives independently: Yes caregiver/support person: No housing: house pets and animals: Yes (1 dog, 2 cats) education level: college (associate's degree) occupational status: employed 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, 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) special myra needs: No travel history: recent (domestic only) seatbelt use: always helmet use: Yes water heater temp set < 120 deg: Yes working smoke detector in home: Yes fire extinguisher in home: Yes carbon monox detector in home: Yes firearms in home: No do you feel safe at home: Yes Smoking Status: Never smoker Tobacco: How many years used: 4 second hand exposure: No alcohol intake: former (1-2/day when not ) substance use type: does not use during the past year weight has: remained stable well-balanced diet: rarely or never daily servings fruits/ve-1 caffeine: Yes (aware of 200mg limit) Type(s) of exercise: walking and other (very physical job) Meds Home Medications and Allergies Home Medications Medication Instructions Recorded Confirmed Type ondansetron 4 mg disintegrating 4 mg PO Q6H PRN nausea and 08/15/22 03/26/23 Rx tablet vomiting #20 tabs prenat.vits,patricia,[id number] 1 tab PO DAILY #90 tabs 11/06/22 03/26/23 Rx Allergies Allergy/AdvReac Type Severity Reaction Status Date / Time No Known Drug Allergies Allergy Verified 03/26/23 10:23 Review of Systems Review of Systems Narrative: Baby is moving. Contractions began 6:00 p.m. last night became more intense. With spontaneous rupture membranes at 8:30 a.m. clear fluid. No headaches. OB Exam Vital signs Blood Pressure: 110/85 Pulse Rate: 117 Temperature: 37.1 F Narrative Exam Narrative: HEENT exam within normal limits. Lungs are clear to auscultation and percussion. No thyromegaly. Heart is regular rate and rhythm no S3-S4 murmurs. Abdomen is gravid. Fetus is vertex. Extremities without edema and nontender. Objective Labs 04/01/23 10:00 Assessment and Plan Assessment and Plan Assessment and Plan narrative: 41 week 2 day gestation with spontaneous labor and rupture membranes. Anticipate vaginal delivery.
[2023-04-01 10:07] VITALS: BP 110/85; BP 118/75; PULSE 117; TEMP 2.8; TEMP 37.1
[2023-04-01 10:24] LABS: Add Manual Diff / Slide Review NO; Basophils Absolute Auto 100 /uL (0-100); Basophils Percent Auto 0.6 % (0-2); Eosinophils Absolute Auto 200 /uL (0-450); Eosinophils Percent Auto 1.8 % (2-4); Hemoglobin 13.7 g/dL (12.0-16.0); Lymphocytes Absolute Auto 1500 /uL (1100-4500); Lymphocytes Percent Auto 17.1 % (25-40); Mean Corpuscular HGB Conc 34.1 % (30-36); Mean Corpuscular Hemoglobin 32.4 PG (26-34); Mean Corpuscular Volume 94.9 fL (80-100); Monocytes Absolute Auto 500 /uL (0-900); Monocytes Percent Auto 5.2 % (3-14); Neutrophils Absolute Auto 6600 /uL (1500-7000); Neutrophils Percent Auto 75.3 % (50-75); Platelet Count 220 X10^3/uL (150-400); Red Blood Cell Count 4.22 X10^6/uL (4.0-5.2); Red Cell Distribution Width 13.4 % (11.6-14.8); White Blood Cell Count 8.8 X10^3/uL (4.5-11.0)
[2023-04-01] MEDS: LACTATED RINGERS 1,000 ML 100 ML IV (10:38)
[2023-04-01] MEDS: FENT 2MCG/ML BUPIV 0.1% EPI 200 MCG/100 ML PLAST..BAG 10 MCG EPIDURAL ×2 (11:13→18:10)
--- NOTE | 2023-04-01 11:21 | PM.AN.REGBLK ---
Regional Block Pre-procedure Procedure: Continuous Lumbar Epidural for L&D Attending OB provider: Nikole Doran PMH/ROS narrative: at 40+3, SROM, active labor. No complications. No comorbidities. Recent ED visit for lower lip swelling and concern for allergic reaction with seafood. Resolved with diphenhydramine. No known allergies. ASA Class: II Labs: Hct 40.0 % (36-46) 04/01/23 10:00 Plt Count 220 X10^3/uL (150-400) 04/01/23 10:00 Medications: Current Medications Generic Name Dose Route Start Last Admin Trade Name Freq PRN Reason Stop Dose Admin Calcium Carbonate 1,000 mg 04/01/23 09:50 Calcium Carbonate 500 Mg Tab PO Q4HR PRN Dyspepsia Carboprost Tromethamine 250 mcg 04/01/23 09:48 Carboprost 250 Mcg/Ml Ampul IM Q90M PRN Bleeding Diphenhydramine HCl 25 mg 04/01/23 10:45 Diphenhydramine 50 Mg/Ml Vial IV Q10M PRN Pruritis Fentanyl 50 mcg 04/01/23 09:59 Fentanyl 100 Mcg/2 Ml Inj IV Q1H PRN Pain, Moderate (4-6) Oxytocin/Lactated Ringer's 30 unit in 500 mls @ 200 mls/hr 04/01/23 09:48 Oxytocin Premix IV CONT PRN Bleeding Protocol Tranexamic Acid 1,000 mg/ 100 mls @ 200 mls/hr 04/01/23 09:48 Sodium Chloride IV NOW PRN Bleeding Lactated Ringer's 1,000 mls @ 100 mls/hr 04/01/23 10:00 04/01/23 10:38 Lactated Ringers IV 100 mls/hr CONT OSBALDO Administration Oxytocin/Lactated Ringer's 30 unit in 500 mls @ 2 mls/hr 04/01/23 10:00 Oxytocin Premix IV TITRATE OSBALDO Protocol 2 MILLIUNIT/MIN FENT 2MCG/ML BUPIV 0.1% EPI 200 mcg in 100 mls @ 10 mls/hr 04/01/23 10:45 04/01/23 11:13 Fentanyl/Bupiv/Ns 2mcg/Ml - 0.1% EPIDURAL 10 mls/hr CONT OSBALDO Administration Lidocaine HCl 20 ml 04/01/23 09:48 Lidocaine 1% 20 Ml INJ INTRA-OP PRN Post Delivery Methylergonovine Maleate 0.2 mg 04/01/23 09:48 Methylergonovine 0.2 Mg Tablet PO Q6HR PRN Heavy Bleeding Methylergonovine Maleate 0.2 mg 04/01/23 09:48 Methylergonovine 0.2 Mg/Ml Vial IM NOW PRN Bleeding Misoprostol 800 mcg 04/01/23 09:48 Misoprostol 200 Mcg Tablet ID NOW PRN Bleeding Misoprostol 400 mcg 04/01/23 09:48 Misoprostol 200 Mcg Tablet SL NOW PRN Bleeding Nalbuphine HCl 2.5 mg 04/01/23 10:45 Nalbuphine 20 Mg/Ml Ampul IV Q10M PRN Pruritis Naloxone HCl 0.2 mg 04/01/23 09:48 Naloxone 0.4 Mg/Ml Vial IV Q2MIN PRN Opiate Reversal Ondansetron HCl 4 mg 04/01/23 09:50 Ondansetron 4 Mg/2 Ml Inj IV Q4HR PRN Nausea And Vomiting Oxytocin 10 unit 04/01/23 09:48 Oxytocin 10 Unit/Ml Vial IM NOW PRN Bleeding Allergies: Allergies Allergy/AdvReac Type Severity Reaction Status Date / Time No Known Drug Allergies Allergy Verified 03/26/23 10:23 Procedure Insertion date: 04/01/23 Insertion time: 11:00 Prep/Local: betadine x3 and 1% lidocaine Interspace: L2-3 Patient position: sitting Needle: 18 gauge [employer] Exchangetead (CSE: 27g [place] through Hustead, clear CSF, 0.25mg MPF Bupiv) Loss of resistance with: saline YASMEEN at (cm): 5 Catheter placed at SKIN (cm): 11 Catheter in SPACE (cm): 6 Insertion: No CSF, No Blood, No Paresthesia with insertion, No Paresthesia with injection and No Test dose reaction Initial Medications TEST DOSE time: 11:01 TEST DOSE: 1.5% lidocaine with epinephrine 1:200k (mL): 3 Infusion INFUSION: 0.125% bupivacaine and with fentanyl 2 mcg/mL Initial rate (mL/hr): 10 Subsequent interventions: PCEA at 10+4 Post-procedure Anesthesia time START: 10:48 Anesthesia time END: 21:52 Post-procedure Anesthesia Assessment: Yes CV function: HR/BP stable, Yes Resp function: RR/sat/airway adequate, Yes Post-op hydration adequate, Yes Pain control adequate, Yes Nausea & vomiting absent, Yes Temperature > 36 C, Yes Mental status appropriate and No Anesthesia complications
--- NOTE | 2023-04-01 12:00 | PM.OBPNLAB ---
Date/Time Date Patient Seen: 04/01/23 Time Patient Seen: 12:00 Pain Control Pain control: epidural Pelvic Exam Dilation (cm): 7 Effacement (%): 100 station: 0 Amniotic membrane status: Ruptured Contractions Contractions on admission: regular Contraction frequency (min): 3 Contraction duration (min): 1 Contraction pattern: Regular Contraction intensity: Strong/Firm Status status: Category ll Heart Rate Baseline: 140 Monitor Accelerations: Present Monitor Decelerations: Prolonged (7 minute deceleration shortly after placement of epidural catheter) Monitor Variability: Moderate Comments: heart tones reassuring prior to and just off her epidural. Prolonged 7 minute deceleration with 80 beats per minute naya. Return to slightly higher baseline with less variability but accelerations. Assessment and Plan Assessment: active labor Plan: continuous present management
[2023-04-01] MEDS: TERBUTALINE 1 MG/ML VIAL 0.25 MG SUBCUT (15:34)
--- NOTE | 2023-04-01 15:47 | PM.OBPNLAB ---
Date/Time Date Patient Seen: 04/01/23 Time Patient Seen: 15:47 Pain Control Pain control: epidural Pelvic Exam Dilation (cm): 10 Effacement (%): 100 station: 0 Amniotic membrane status: Ruptured Contractions Contractions on admission: regular Contraction frequency (min): 2 Contraction pattern: Regular Contraction intensity: Strong/Firm Status status: Category ll Heart Rate Baseline: 130 Monitor Accelerations: Present Monitor Decelerations: Prolonged (7 minutes with naya to 70) Monitor Variability: Moderate Comments: Patient was pushing for approximately 16 minutes when she had a prolonged 7 minute deceleration with a naya to 70. Position change, O2, fluid bolus, terbutaline 0.25 mg subcu given. Baseline had been 120-130. Increase to 150 post terbutaline with decreased variability for now. Assessment and Plan Comments: Discussed with the patient options for continuing on with her delivery. If baby unable to tolerate contractions options would be section, forceps, vacuum delivery. Pros and cons discussed with the patient. There is some concern that the head is not appearing to fit past the mid pelvis. Safest for baby would probably be a section. Risks of the section of reaction to medication or anesthesia, infection, bleeding enough to require blood transfusion which she is agreeable to, damage to internal structures such as bowel, bladder, ureters that could root result in additional surgeries. Patient is point is hopeful that she can continue in labor. Will wait and see how the baby responds when contractions return as terbutaline wears off.
[2023-04-01] MEDS: OXYTOCIN PREMIX 30 UNIT/500 ML PLAST..BAG IV (17:16)
--- NOTE | 2023-04-01 18:48 | P.PNOB_ITS ---
Date/Time Date Patient Seen: 04/01/23 Time Patient Seen: 18:48 Pain Control Pain control: epidural Pelvic Exam Dilation (cm): 10 Effacement (%): 100 station: +2 Amniotic membrane status: Ruptured Contractions Contractions on admission: regular Monitor mode: Internal ([place]) Pitocin rate (mU/min): 2 Contraction frequency (min): 3 Contraction duration (min): 1 Contraction pattern: Regular Contraction intensity: Strong/Firm Intrauterine tone measurement: 40 Status status: Category ll Heart Rate Baseline: 140 Monitor Accelerations: Present Monitor Decelerations: Variable Monitor Variability: Moderate Assessment and Plan Assessment: active labor Comments: After terbutaline given the heart tones became reassuring. Contractions did not restart so Pitocin was begun at 2 units. Fetus appears to be tolerating pushing better at this point.
--- NOTE | 2023-04-01 22:06 | P.PCNOB_ITS ---
Labor & Delivery Delivery date: 04/01/23 Intrapartal Events: Prolonged 2nd Stage > 2.5 hours and Extended Bradycardia (8 minute bradycardia shortly after epidural, 8 minute bradycardia shortly after started pushing.) Delivery augmentation: pitocin (2 U, 2 hours after terbutaline for bradyca rdia) Delivery monitor: external FHT, external uterine and internal uterine Route of delivery: L&D Laceration Description: Perineal - 2nd Degree Delivery repair: chromic (3-0) Estimated blood loss (mL): 300 Anesthesia Type: Epidural Narrative: Patient arrived in Labor and delivery after spontaneous rupture of membranes in active labor. Patient received an epidural catheter for pain control. heart tones category 1 to category 2 with 1 episode of 8 minute bradycardia shortly after epidural. Patient progressed to complete and 60 minutes after started pushing had another episode of bradycardia. She was given 0.25 mg of subcu terbutaline. The fetus responded well. However labor did not restart spontaneously so 2 hours later she was started on 2 units of Pitocin. Patient then pushed for greater than 3 hours. She eventually had spontaneous vaginal delivery over an intact perineum. The viable female was placed on maternal abdomen. After the cord stopped pulsating the cord was clamped, cut, and cord bloods obtained. There were no cervical or vaginal tears. A second- degree tear was repaired with 3-0 chromic suture in the usual 2 layer fashion. Estimated blood loss 300 cc. Patient was straight cathed at the end of the procedure due to prolonged pushing after Edwards catheter was removed. Both infant mother stable. Counts of instruments and sponges were correct. [place] Baby 1: Infant gender: Female Presentation: vertex Position: Right Occiput Anterior Placenta delivery description: Spontaneous Cord Vessel Description: 3 Vessels score (1 min): 7 score (5 min): 8 weight: 8 lb 2 oz Plan for aftercare: Routine care
[2023-04-01] MEDS: LANOLIN OINT 7 GM 1 APPLIC TOP (23:17)
[2023-04-01] MEDS: IBUPROFEN 600 MG TABLET PO (23:18)
[2023-04-01] MEDS: ACETAMINOPHEN 325 MG TABLET 650 MG PO (23:18)
[2023-04-01] MEDS: DERMOPLAST SPRAY 20% 60 ML 1 SPRAY TOP (23:19)
[2023-04-02 04:42] LABS: Add Manual Diff / Slide Review NO; Basophils Absolute Auto 0 /uL (0-100); Basophils Percent Auto 0.2 % (0-2); Eosinophils Absolute Auto 100 /uL (0-450); Eosinophils Percent Auto 0.7 % (2-4); Hematocrit 32.5 % (36-46); Hemoglobin 11.1 g/dL (12.0-16.0); Lymphocytes Absolute Auto 1400 /uL (1100-4500); Lymphocytes Percent Auto 10.7 % (25-40); Mean Corpuscular HGB Conc 34.1 % (30-36); Mean Corpuscular Volume 93.9 fL (80-100); Monocytes Absolute Auto 1000 /uL (0-900); Monocytes Percent Auto 7.6 % (3-14); Neutrophils Absolute Auto 10300 /uL (1500-7000); Neutrophils Percent Auto 80.8 % (50-75); Platelet Count 178 X10^3/uL (150-400); Red Blood Cell Count 3.46 X10^6/uL (4.0-5.2); Red Cell Distribution Width 13.6 % (11.6-14.8); White Blood Cell Count 12.8 X10^3/uL (4.5-11.0)
[2023-04-02] MEDS: IBUPROFEN 600 MG TABLET PO ×4 (05:04→23:14)
[2023-04-02] MEDS: ACETAMINOPHEN 325 MG TABLET 650 MG PO ×4 (05:05→23:14)
[2023-04-02] MEDS: PRENATAL VIT,CALC/IRON/FOLIC 1 TABLET 1 TAB PO (08:35)
[2023-04-02] MEDS: DOCUSATE 100 MG CAPSULE PO (08:35)
[2023-04-02 11:30] LABS: COVID19 -Nasal RAPID Negative (Negative)
--- NOTE | 2023-04-02 17:41 | PM.OBPN.1 ---
Subjective - OB Subjective Patient comments: no complaints [place] baby status: doing well [place] feeding status: exclusively breast feeding Narrative: day 0 doing well. tested positive for COVID patient negative. Date Patient Seen: 04/02/23 Time Patient Seen: 17:41 Exam Vital Signs (past 8 hours): Blood pressure 121/63, pulse 68, temperature 98.2? Narrative Exam Narrative: Abdomen is soft, nontender. Uterus is firm, at U, nontender. Repair intact. Mild lochia. Extremities without edema and nontender. Objective Labs 04/02/23 04:30 Labs: Laboratory Results - last 24 hr 04/02/23 04/02/23 04:30 11:05 WBC 12.8 H RBC 3.46 L Hgb 11.1 L Hct 32.5 L MCV 93.9 MCH 32.0 MCHC 34.1 RDW 13.6 Plt Count 178 Neut % (Auto) 80.8 H Lymph % (Auto) 10.7 L [place] % (Auto) 7.6 Eos % (Auto) 0.7 L Baso % (Auto) 0.2 Neut # (Auto) 06621 H Lymph # (Auto) 1400 [place] # (Auto) 1000 H Eos # (Auto) 100 Baso # (Auto) 0 SARS-CoV-2 (PCR) Negative Assessment & Plan Plan day: 0 plan OB: routine care Time Spent With Patient Time: Total time spent is greater than 50% in coordination of care (as documented) at patient's floor/unit and/or counseling patient: Time with patient: less than 15 minutes
--- NOTE | 2023-04-03 08:09 | PM.OBDS.1 ---
Discharge Providers Provider Date of admission: 04/01/23 09:14 Discharge Date: 04/03/23 Primary care physician: Alda HESS Provider Consults: 04/01/23 09:48 Consult to Anesthesiology Urgent Comment: Consulting Provider: Anesthesiologist Reason for consultation: Epidural Has provider been notified: Yes 04/01/23 09:59 Consult to Anesthesiology Urgent Comment: Consulting Provider: Anesthesiologist Reason for consultation: Epidural Has provider been notified: No 04/02/23 22:04 Consult to Medical Receptionist Assistant Routine Comment: Discharge provider: Nikole Doran MD Summary Hospital Course Date Patient Seen: 04/03/23 Time Patient Seen: 08:09 Diagnoses: 41 week gestation vaginal delivery with repair of second-degree tear Hospital Course: Patient arrived on Labor and delivery in active labor with spontaneous rupture membranes. She received an epidural catheter for pain control. She had a prolonged 2nd stage but eventually had a spontaneous vaginal delivery of an 8 lb 3 oz baby girl. She would a second-degree tear repaired. Patient is ambulatory. Tolerating regular diet. well. She is urinating well. It was discovered that the father of the baby tested positive for COVID. Patient tested negative. Patient was educated on COVID precautions. Peripartum Data Infant Delivery Method: Natural Vaginal Laceration Description: Perineal - 2nd Degree Procedures: Epidural catheter, spontaneous vaginal delivery, repair of second-degree tear complications: none [place] 1: Gender: Female Disposition of : home Discharge Diagnosis (1) Vaginal delivery: Status: Acute Status at Discharge Cognitive/behavioral status at discharge: oriented Functional status at discharge: independent ambulation Overall status at discharge: patient is progressing back to baseline Time Spent with Patient Time attestation: Total time spent providing and/or coordinating discharge services: Time spent: Less than 30 minutes Objective Labs 04/02/23 04:30 Labs: Laboratory Results - last 24 hr 04/02/23 11:05 SARS-CoV-2 (PCR) Negative Exam Vital Signs (past 8 hours): Blood pressure 105/67, pulse 79, temperature 97.7? Narrative Exam Narrative: Abdomen is soft, nontender. Uterus is firm, at U, nontender. Perineal repair is intact. Mild lochia. Extremities without edema and nontender. Discharge Plan Discharge Plan Patient Disposition: Home Discharge orders & Medications Prescriptions: Continued ondansetron 4 mg tablet,disintegrating 4 mg PO Q6H PRN (Reason: nausea and vomiting) Qty: 20 3RF prenat.vits,patricia,[id number] Tablet 1 tab PO DAILY Qty: 90 0RF Follow up/Referrals: Christina Alonso MD [Physician] - 6 Weeks ( Appt w/ Dr. Alonso: ) Diet/Activity/Treatments Diet: Regular Activity: Nothing in vagina for 6 weeks Skin/Wound/Dressing Care Report to your healthcare provider any signs of infection, such as:: chills, fever and increased pain Visit Report/Discharge Packet Stand Alone Forms: Discharge: Care Discharge Data Primary Care Provider: Alda Frank
[2023-04-03] MEDS: DOCUSATE 100 MG CAPSULE PO (08:35)
[2023-04-03] MEDS: PRENATAL VIT,CALC/IRON/FOLIC 1 TABLET 1 TAB PO (08:35)
[2023-04-03] MEDS: IBUPROFEN 600 MG TABLET PO (08:35)
[2023-04-03] MEDS: ACETAMINOPHEN 325 MG TABLET 650 MG PO (08:36)
[2023-04-03 09:55] VITALS: BP 116/64; PULSE 83; RESP 16; TEMP 37
== END 2023-04-03 09:56 | disposition home or self-care (01) | DRG 807 ==
PROVIDERS: Admitting Provider Specialist; Referring Provider Specialist; Visit Provider Specialist
DX: O48.0 Post-term pregnancy (principal); Z37.0 Single live birth; Z3A.41 41 weeks gestation of pregnancy; O76 Abnormality in fetal heart rate and rhythm complicating labor and delivery; O70.1 Second degree perineal laceration during delivery
CPT/HCPCS: 36415; 59050; 59400; 59409; 85025; 86850; 86900; 86901; 87635; C9803; G0379; J2590

== ENCOUNTER 2023-04-06 22:37 | Emergency (ER) | payer OTHER, SELFPAY ==
--- NOTE | 2023-04-06 22:41 | ED_ITS ---
HPI - General Adult General Chief complaint: Urogenital-Female Stated complaint: Prolapse rectum post Time Seen by Provider: 04/06/23 22:40 History of Present Illness HPI narrative: 22-year-old female nonsmoker without chronic medical problems presents with a complaint prolapsed rectum. She just delivered vaginally a few days ago and states that she noticed that her rectum had prolapsed earlier tonight. She was able to reduce it with a brief amount of firm pressure and now is having no symptoms. She states she has been taking stool softeners and is not constipated. She is otherwise well and free of complaint. She denies dizziness, weakness or lightheadedness. She is had no fever or chills and denies any nausea or vomiting. She has been breast-feeding and had a good doctor's appointment today they and has a happy healthy baby at home. Related Data Previous Rx's Medication Instructions Recorded ondansetron 4 mg disintegrating 4 mg PO Q6H PRN nausea and 08/15/22 tablet vomiting #20 tabs prenat.vits,patricia,[id number] 1 tab PO DAILY #90 tabs 11/06/22 Allergies Allergy/AdvReac Type Severity Reaction Status Date / Time shellfish derived Allergy Intermediate Swelling Verified 04/01/23 13:15 of Lip/Tongue/Throat Review of Systems Review of Systems Narrative: GENERAL: Denies chills, fatigue, malaise, fever, sweats. HEENT: Denies sinus pain, ear pain, sore throat, difficulty swallowing, dizziness. RESPIRATORY: Denies dyspnea, cough, wheezing, hemoptysis, sputum. CARDIOVASCULAR: Denies chest pain, palpitations, orthopnea, edema, GASTROINTESTINAL: See HPI : See HPI MUSCULOSKELETAL: denies weakness, joint pain, or bony pain SKIN: Denies rash, skin lesions, or other NEUROLOGIC: Denies weakness, headache, numbness, change in speech, confusion, seizures, incoordination. PSYCHIATRIC: No concerning psychosocial issues. 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) special myra needs: No travel history: recent (domestic only) seatbelt use: always helmet use: Yes water heater temp set < 120 deg: Yes working smoke detector in home: Yes fire extinguisher in home: Yes carbon monox detector in home: Yes firearms in home: No do you feel safe at home: Yes Smoking Status: Never smoker Tobacco: How many years used: 4 second hand exposure: No alcohol intake: former (1-2/day when not ) substance use type: does not use during the past year weight has: remained stable well-balanced diet: rarely or never daily servings fruits/ve-1 caffeine: Yes (aware of 200mg limit) Type(s) of exercise: walking and other (very physical job) Smoking Status: Never smoker alcohol intake frequency: a few times a week Substance Use Type: does not use Exam Narrative Exam Narrative: GEN: AOx3 and in mild distress EYES: Pupils are equal, round, and reactive to light and accommodation. Extraoccular muscles are intact bilaterally. There is no subconjunctival hemorrhage or exudate. CHEST: Lungs are clear to auscultation bilaterally and free of wheezes, rales, or rhonchi. Heart rate is regular rhythm, there are no murmurs, clicks, rubs, or gallops. There is no chest wall tenderness. ABD: Abdomen is soft and nontender. There is no guarding or rebound. Bowel sounds are normal in all 4 quadrants. There is no mass or organomegaly. RECTAL: no evidence of prolapse or hemorrhoid, no bleeding or obvious fissure EXT: Full painless ROM of all extremities with no loss of sensation or strength. SKIN: Warm, pink, and dry. No erythema or rash Initial Vital Signs Initial Vital Signs: Vital Signs Temperature 97.8 F 04/06/23 22:48 Pulse Rate 85 04/06/23 22:48 Respiratory Rate 18 04/06/23 22:48 Blood Pressure 146/68 H 04/06/23 22:48 Pulse Oximetry 97 04/06/23 22:48 Oxygen Delivery Method Room Air 04/06/23 22:48 Course Vital Signs Vital signs: Vital Signs - 8 hr 04/06/23 22:48 Temperature 97.8 F Pulse Rate 85 Respiratory Rate 18 Blood Pressure 146/68 H Pulse Oximetry 97 Oxygen Delivery Method Room Air Medical Decision Making MDM Narrative Medical decision making narrative: [22] year old patient presents with complaint of a reduced prolapsed rectum, recent vaginal delivery Multiple etiologies for patient's symptoms considered including, but not limited to: [Prolapsed rectum versus hernia versus other] Prior Charts reviewed in our EMR Primary Historian: patient Patient's history and physical exam are reassuring and what she describes sounds most consistent with a prolapsed rectum that she was able to reduce herself. Hemorrhoid considered but none noted on exam. Patient has no abdominal pain, nausea or vomiting and is otherwise well. We discussed the importance of staying well hydrated, avoiding constipation, the importance of attempts at self reduction and return precautions which include but are not limited to recurrence of prolapse that is unable to be reduced, pain, fever, vomiting or other concerning symptoms. She plans to follow-up with Dr. Doran, and will call tomorrow Findings and discharge diagnosis discussed with patient/family followed by verbalization of understanding Return precautions discussed with patient/family whom verbalize understanding of diagnosis and plan Discharge Plan Departure Patient Disposition: Home Clinical Impression: Partial rectal prolapse Instructions: DI for Rectal Prolapse Activity Restrictions/Additional Instructions: *You have been diagnosed with [rectal prolapse resolved ] *What to do: *Please continue to take your regular medications as directed. [ ] New medication prescriptions sent to your pharmacy: [ ] [ ] New medication written as a paper prescription [ ] No new medications given *Please follow up with Dr. Doran, call for an appointment. Let them know you were seen in the Emergency Department and that we ask that you be seen in follow up. We will electronically transmit a record of today's note *I as we discussed try to avoid becoming constipated and if your prolapse comes out again, lie on your side and apply steady gentle but firm pressure and will likely go back in just like it did today. They become increasingly difficult to get back in if they have been out for a long period of time. If you are unable to reduce it herself please consider coming back to the emergency department so we may help *Return to Emergency Department if you should have any new, worsening or kobi rning symptoms, such as [fever greater than 101 F, shaking chills, worsening pain, persistent vomiting or other bothersome symptoms] Prescriptions: No Action ondansetron 4 mg tablet,disintegrating 4 mg PO Q6H PRN (Reason: nausea and vomiting) Qty: 20 3RF prenat.vits,patricia,[id number] Tablet 1 tab PO DAILY Qty: 90 0RF Referrals: Nikole Doran MD [Physician] - Provider,Alda HESS [Primary Care Provider] - Stand Alone Forms: Patient Portal/API
[2023-04-06 22:48] VITALS: BP 146/68; PULSE 85; RESP 18; TEMP 36.6; O2SAT 97; BMI 21.5
--- NOTE | 2023-04-06 22:53 | PC.NURSE ---
see triage note, at present there is no prolapse
== END 2023-04-06 22:58 | disposition home or self-care (01) ==
PROVIDERS: Emergency Provider Emergency Medicine
DX: K62.3 Rectal prolapse (principal)
CPT/HCPCS: 99281

== ENCOUNTER → 2023-05-14 12:03 | Outpatient (CLI) | payer OTHER, SELFPAY ==
[2023-05-16 13:47] LABS: Candida species Negative (Negative); Gardnerella vaginalis Negative (Negative); Trichomoas vaginalis Negative (Negative)
== END ==
PROVIDERS: Visit Provider Physician Assistant Medical
DX: N89.8 Other specified noninflammatory disorders of vagina (principal)
CPT/HCPCS: 87480; 87510; 87660